=== PATIENT | female | born 1955 | race Two or more races ===

== ENCOUNTER 2024-12-09 11:34 | Emergency (ER) | payer OTHER ==
[~2024-12-09] VITALS: Ht 160 cm; Wt 99.8 kg
[2024-12-09] MEDS ORDERED: COZAAR50 MG PO (12:04)
[2024-12-09] MEDS ORDERED: NORVASC5 MG PO (12:04)
[2024-12-09] MEDS ORDERED: LIPITOR20 MG PO (12:05)
[2024-12-09] MEDS ORDERED: NEXIUM40 M1 PO (12:05)
[2024-12-09] MEDS ORDERED: ONDANSETRON HCL 2 MG/ML VIAL IV ONE (13:00)
[2024-12-09] MEDS ORDERED: 0.9 % SODIUM CHLORIDE 1,000 ML IV ONE (13:00)
[2024-12-09] MEDS ORDERED: FAMOtidine 10 MG/ML (4ML VIAL) IV ONE (13:00)
[2024-12-09 13:42] LABS: HEMOGLOBIN 13.2 g/dL (12.0-15.00); MEAN CELL VOLUME 85.3 fL (80.00-100.00); MEAN CORPUSCULAR HEMOGLOBIN 27.4 pg (27.00-32.0); MEAN CORPUSCULAR HGB CONC 32.1 g/dl (32.0-36.0); PLATELET COUNT 195 K/uL (150-450); RED BLOOD COUNT 4.81 M/uL (4.00-6.00); RED CELL DISTRIBUTION WIDTH 16.6 % (11.5-14.5)
[2024-12-09 14:09] LABS: INR 1.06; PARTIAL THROMBOPLASTIN TIME 26.6 SECONDS (22.0-34.0); PROTHROMBIN TIME 11.5 SECONDS (9.0-11.5)
[2024-12-09 14:43] LABS: PH,URINE 5.5 (5.0-8.0); URINE APPEARANCE Clear; URINE BILIRRUBIN Negative (NEGATIVE); URINE BLOOD Negative; URINE COLOR Yellow; URINE GLUCOSE Negative (NEGATIVE); URINE KETONE Negative (NEGATIVE); URINE LEUKOCYTE Trace; URINE NITRATE Negative; URINE PROTEIN Negative (NEGATIVE); URINE UROBILINOGEN 0.2 E.U./dl
[2024-12-09 14:47] LABS: URINE BACTERIA 1463.7 uL (0.0-1933); URINE EPITHELIAL CELLS 34.8 uL (0.0-38.8); URINE WBC 33.2 uL (0.0-23.2)
[2024-12-09 14:58] LABS: ALBUMIN 3.5 gm/dL (3.4-5.0); BILIRUBIN TOTAL 0.55 mg/dL (0.3-1.2); CALCIUM 9.3 mg/dL (8.5-10.1); CREATININE SERUM 0.85 mg/dL (0.55-1.02); GFR 65.93; GLOBULINA 4.3 G/DL (2.4-3.5); POTASSIUM 4.2 mEq/L (3.5-5.1); TOTAL PROTEIN 7.8 gm/dL (6.4-8.2)
[2024-12-09] MEDS ORDERED: PEPCID AC20 MG PO (15:21)
[2024-12-09] MEDS ORDERED: ZOFRAN8 MG PO (15:21)
[2024-12-09] MEDS ORDERED: ACETAMINOPHEN 500 MG GEL..CAP PO STA (15:28)
== END 2024-12-09 16:17 | disposition home or self-care (01) ==
LOC: ER 11:36
PROVIDERS: General Practice
DX: R11.10 Vomiting, unspecified (principal); I10 Essential (primary) hypertension; E11.9 Type 2 diabetes mellitus without complications
CPT/HCPCS: 36415; 96365; 96366; 99282; J2405; J3490; J7030